=== PATIENT | female | born 1970 | race Caucasian/White ===

== ENCOUNTER 2017-08-27 19:31 | Emergency (ER) | payer OTHER ==
[~2017-08-27] VITALS: Ht 162.6 cm; Wt 56.2 kg
[2017-08-27 19:37] VITALS: TEMP 37; Ht 162.6 cm; Wt 56.2 kg
[2017-08-27] MEDS ORDERED: TRAMADOL HCL 50 MG TAB PO STA (19:49)
--- NOTE | 2017-08-27 19:59 | EMERGENCY ROOM VISIT NOTE ---
ED Visit Note First contact with patient: 19:39 CHIEF COMPLAINT: Hand injury HISTORY OF PRESENT ILLNESS: This patient is a pleasant 47-year-old female presents to the emergency department a few hours after injuring right hand. She reports trying to get a latch together. She was pushing quite firmly, when she felt a snap in her right hand. The patient is right-hand dominant. She denies any numbness or tingling. She had Tylenol a few hours ago with minimal relief of the pain. She denies any prior fracture to this hand. She denies any injury of the wrist or forearm. REVIEW OF SYSTEMS: A 6 system review of systems was completed with positives and pertinent negatives in the HPI. ALLERGIES: NSAIDs MEDICATIONS: Reviewed PMH: Clotting disorder SOCIAL HISTORY: She does not smoke, occasional alcohol use. 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 PHYSICAL EXAM: Vital Signs: Reviewed Nurse's notes, vital signs stable. GENERAL : 47-year-old female, in no acute distress, but appears to be in pain, well- developed, well-nourished. MUSCULOSKELETAL: There is no deformity of the right hand. There is tenderness and swelling over the proximal fourth and fifth metacarpal.. Fiber Analyst strength 2/5. There is no laceration. Capillary refill less than 2 seconds. No tenderness of the fingers or wrist. Full range of motion of the wrist. No snuff box tenderness. Radial pulse 2+. NEURO: Alert and oriented to person, place, and time. Normal sensation to light and sharp touch. EMERGENCY DEPARTMENT COURSE: I examined the patient. I reviewed the x-ray on the patient's phone. The patient was given tramadol 50 mg for pain. An ulnar gutter Ortho-Glass splint was applied. Discharge instructions were reviewed, and she was discharged in good condition DIAGNOSIS: Right fourth metacarpal fracture DISCHARGE INSTRUCTIONS: Please apply ice for 20 minute intervals over the next 48 hours. Please try to elevate the hand as much as possible above the heart. Please call [facility] at 8 AM on Tuesday for a follow-up appointment Please keep the splint in place until seen by orthopedics. Please do not get it wet. Continue Tylenol every 4 hours as needed for pain Please take tramadol 50 mg every 4 hours for severe pain. This may be taken in addition to Tylenol. This should not affect your clotting disorder Please do not hesitate to return to the emergency department with any new, worsening or concerning symptoms; especially, signs of compartment syndrome such as numbness, discoloration or severe pain in the fingers It was a pleasure participating in your care today This chart was completed in part utilizing [employer] Speech Voice Recognition software. Attempts were made to minimize the grammatical errors, random word insertions, pronoun errors and incomplete sentences. Any formal questions or concerns about the content, text or information contained within the body of this dictation should be directly addressed to the provider for clarification.
[2017-08-27] MEDS ORDERED: TRAM-453 PO (20:20)
[2017-08-27 20:29] VITALS: BP 96/70; PULSE 81; O2SAT 96
[2017-08-27] MEDS ORDERED: TRAMADOL HCL 50 MG HOME PACK PO ONE (20:30)
[2017-08-27] MEDS ORDERED: DEXADRINE PO (20:32)
[2017-08-27] MEDS ORDERED: DEXT5CAP PO (20:37)
== END 2017-08-27 20:37 | disposition home or self-care (01) ==
LOC: C.EDB 19:32 → C.EDD 20:37
DX: S62.304A Unspecified fracture of fourth metacarpal bone, right hand, initial encounter for closed fracture (principal); X50.0XXA Overexertion from strenuous movement or load, initial encounter; Y93.89 Activity, other specified